=== PATIENT | female | born 1975 | race Caucasian/White ===

== ENCOUNTER 2019-05-25 05:22 | Observation (INO) | payer OTHER ==
[2019-05-18 11:25] LABS: HEMATOCRIT 46.1 % (36.0-47.0); HEMOGLOBIN 15.8 g/dL (12.0-15.5); MEAN CORPUSCULAR HEMOGLOBIN 33.1 pg (27.0-33.4); MEAN CORPUSCULAR HGB CONC 34.4 g/dL (32.0-36.0); MEAN CORPUSCULAR VOLUME 96 fl (80-97); PLATELET COUNT 166 10^3/uL (150-450); RED BLOOD COUNT 4.78 10^6/uL (3.72-5.28); WHITE BLOOD COUNT 4.9 10^3/uL (4.0-10.5)
[2019-05-18 11:35] LABS: APPEARANCE,URINE CLEAR; BILIRUBIN,URINE NEGATIVE (NEGATIVE); COLOR,URINE STRAW; GLUCOSE, URINE NEGATIVE (NEGATIVE); KETONES,URINE NEGATIVE (NEGATIVE); LEUKOCYTE ESTERASE,URINE NEGATIVE (NEGATIVE); NITRITE,URINE NEGATIVE (NEGATIVE); PROTEIN,URINE NEGATIVE (NEGATIVE); URINE SPECIFIC GRAVITY 1.006; UROBILINOGEN,URINE NEGATIVE mg/dL (<2.0)
[2019-05-18 11:55] LABS: ANION GAP 11 (5-19); BLOOD UREA NITROGEN 12 mg/dL (7-20); CALCIUM 9.1 mg/dL (8.4-10.2); CARBON DIOXIDE 25 mmol/L (22-30); CHLORIDE 103 mmol/L (98-107); GLUCOSE 85 mg/dL (75-110); POTASSIUM 4.3 mmol/L (3.6-5.0)
--- NOTE | 2019-05-18 13:21 | RADIOLOGY REPORT (SQ) ---
EXAM DESCRIPTION: CHEST PA/LATERAL COMPLETED DATE/TIME: 05/18/2019 11:24 am REASON FOR STUDY: PRE-OP COMPARISON: None. EXAM PARAMETERS: NUMBER OF VIEWS: two views TECHNIQUE: Digital Frontal and Lateral radiographic views of the chest acquired. RADIATION DOSE: NA LIMITATIONS: none FINDINGS: LUNGS AND PLEURA: No opacities, masses or pneumothorax. No pleural effusion. MEDIASTINUM AND HILAR STRUCTURES: No masses or contour abnormalities. HEART AND VASCULAR STRUCTURES: Heart normal size. No evidence for failure. BONES: No acute findings. HARDWARE: None in the chest. OTHER: No other significant finding. IMPRESSION: NO SIGNIFICANT RADIOGRAPHIC FINDING IN THE CHEST. TECHNICAL DOCUMENTATION: JOB ID: [id number] [employer]- All Rights Reserved Reading location - IP/workstation name: [email or web address]
--- NOTE | 2019-05-18 15:51 | EKG REPORT ---
SEVERITY:- NORMAL ECG - SINUS RHYTHM ST ELEV, PROBABLE NORMAL EARLY REPOL PATTERN : Confirmed by: Cyndi Robins MD 18-May-2019 15:50:57
[~2019-05-25 05:22] MED LIST: CEFAZOLIN 1 GM/D5W RTU 1 GM/50 ML RTUPB IV ONE; CEFAZOLIN 1 GM/D5W RTU 1 GM/50 ML RTUPB IV PRN; LACTATED RINGERS 1000 ML IV PRN; LIDOCAINE 0.5% INJ-PF (5 MG/ML) 50 ML SDV SUBCUT PRN
[2019-05-25] MEDS ORDERED: MIDAZOLAM 2 MG/2 ML INJ ONE (06:30)
[2019-05-25] MEDS ORDERED: FENTANYL CITRATE INJ/PF 250 MCG/5 ML AMPULE ONE (06:30)
[2019-05-25] MEDS ORDERED: PROPOFOL INJ 200 MG/20 ML VIAL IV ONE (06:31)
[2019-05-25] MEDS ORDERED: LIDOCAINE 1%/EPINEPHRINE INJ 20 ML VIAL ONE (07:09)
[2019-05-25] MEDS ORDERED: LIDOCAINE 1%/EPINEPHRINE INJ 20 ML VIAL INFIL ONE ×2 (07:38)
[2019-05-25] MEDS ORDERED: KETOROLAC TROMETHAMINE 60 MG/2 ML SDV ONE (08:42)
[2019-05-25] MEDS ORDERED: FENTANYL CITRATE INJ/PF 100 MCG/2 ML AMPUL IV PRN ×3 (08:46)
[2019-05-25] MEDS ORDERED: DIPHENHYDRAMINE HCL 50 MG/ML VIAL IV PRN (08:46)
[2019-05-25] MEDS ORDERED: PROMETHAZINE HCL INJ 25 MG/1 ML VIAL IV PRN ×2 (08:46)
[2019-05-25] MEDS ORDERED: OXYCODONE-ACETAMINOPHEN 5-325 MG TABLET PO PRN ×3 (08:46→09:12)
[2019-05-25] MEDS ORDERED: MEPERIDINE HCL/PF INJ 25 MG/1 ML DISP.SYRIN IV PRN (08:46)
[2019-05-25] MEDS ORDERED: MORPHINE SULFATE 10 MG/ML INJ INJ PRN ×2 (09:13→09:14)
[2019-05-25] MEDS ORDERED: MORPHINE SULFATE 10 MG/ML INJ IM PRN (09:15)
[2019-05-25] MEDS ORDERED: PROMETHAZINE HCL INJ 25 MG/1 ML VIAL IM PRN (09:15)
--- NOTE | 2019-05-25 12:20 | OPERATIVE REPORT E ---
Operative Report NAME: CRISTHIAN MACIAS : 1975 AGE: 43Y DATE OF SURGERY: 05/25/2019 ROOM: 209 PREOPERATIVE DIAGNOSIS: Menorrhagia. POSTOPERATIVE DIAGNOSIS: Menorrhagia. OPERATION: Total vaginal hysterectomy with Walsh culdoplasty. SURGEON: MARYLOU AVALOS M.D. ANESTHESIA: General endotracheal. COMPLICATIONS: None. ESTIMATED BLOOD LOSS: Approximately 25 to 50 mL. INDICATIONS FOR PROCEDURE: The patient had unreasonable uterine bleeding despite multiple outpatient management. She desired attempt at definitive therapy. The usual risks of bleeding, infection, anesthesia, and damage to organs or tissues was discussed with the patient who understood, and she desires attempt at definitive therapy. PROCEDURE: The patient was taken to the operating room. The patient was placed in modified lithotomy position. Adequate anesthesia was ascertained. She was prepped and draped in the usual manner for a vaginal hysterectomy. EUA was performed after a time out was performed and antibiotics had been given. Bladder was drained under sterile technique. The posterior vagina was retracted with a weighted speculum and a Gerardo speculum was used anteriorly. The posterior colpotomy incision was made, local infiltration of the area afterwards with 1% with epinephrine lidocaine was instilled with good hemostasis noted at this point. The uterosacral ligaments were crossclamped, cut, suture ligated, and held. The cervix was circumscribed. The bladder was advanced sequentially throughout this aspect of the procedure with LigaSure device used for hemostasis bilaterally. The anterior cul-de-sac was entered without difficulty. A Ben retractor was placed within the peritoneal cavity and the pedicles were identified and crossclamped and held. The cervix and uterus were handed off the operative field. The pedicles were noted to be dry. The ovaries were visually normal. The Walsh culdoplasty suture was placed and held, and the vagina was closed in an anterior to posterior fashion with #1 chromic catgut used throughout the case. Good hemostasis was noted. The vagina was irrigated. The bladder was drained of a small amount of urine at the completion of the case. All sponge and needle counts were correct. DICTATING PHYSICIAN: MARYLOU AVALOS M.D. [id number] Y#: [id number] ID: [id number] JOB#: [id number] ACCT: [id number] cc:MARYLOU AVALOS M.D. >
[2019-05-25] MEDS: CEFAZOLIN 1 GM/D5W RTU 1 GM/50 ML RTUPB IV SCH ×2 (12:31→17:28)
[2019-05-25] MEDS ORDERED: ROCURONIUM BROMIDE INJ 50 MG/5 ML VIAL IV ONE (16:05)
[2019-05-25] MEDS ORDERED: ONDANSETRON HCL INJ/PF 4 MG/2 ML SDV ONE (16:05)
[2019-05-25] MEDS ORDERED: DEXAMETHASONE SOD PHOSPHATE INJ 4 MG/1 ML VIAL ONE (16:05)
[2019-05-25] MEDS ORDERED: NEOSTIGMINE METHYLSULFATE 10 MG/10 ML VIAL ONE (16:05)
[2019-05-25] MEDS ORDERED: GLYCOPYRROLATE 1 MG/5 ML VIAL ONE (16:05)
[2019-05-25] MEDS ORDERED: LIDOCAINE 2% INJ-PF (20 MG/ML) 2 ML AMPUL ONE (16:05)
[2019-05-25] MEDS: IBUPROFEN 800 MG TABLET PO SCH ×2 (19:46→21:46)
[2019-05-26 06:31] LABS: HEMATOCRIT 38.8 % (36.0-47.0); HEMOGLOBIN 13.2 g/dL (12.0-15.5); MEAN CORPUSCULAR HEMOGLOBIN 32.5 pg (27.0-33.4); MEAN CORPUSCULAR VOLUME 96 fl (80-97); PLATELET COUNT 125 10^3/uL (150-450); RED BLOOD COUNT 4.05 10^6/uL (3.72-5.28); RED CELL DISTRIBUTION WIDTH 12.3 % (11.5-14.0); WHITE BLOOD COUNT 13.1 10^3/uL (4.0-10.5)
[2019-05-26] MEDS: IBUPROFEN 800 MG TABLET PO SCH (07:08)
[2019-05-26 08:16] VITALS: BP 110/74
== END 2019-05-26 08:35 | disposition home or self-care (01) ==
LOC: OROUT 05:22 → 2N 05:23 → OROUT 05-26 08:35
PROVIDERS: ADMIT Specialist; ATTEND Specialist
PROC: 0UT97ZZ Resection of Uterus, Via Natural or Artificial Opening (ICD-10-PCS; principal; 2019-05-25 07:15)
DX: N92.1 Excessive and frequent menstruation with irregular cycle (principal); N93.9 Abnormal uterine and vaginal bleeding, unspecified; Z98.890 Other specified postprocedural states
CPT/HCPCS: 93005; 86900; 86901; 36415 ×2; 86850; 85027 ×2; 81025; 80048; 81001; 88307 ×2; 71046; 94799; 93010; 00944; 58260; G0378 ×2; J2250; J0690; J3490 ×4; J1100; J1885; J3010; J2270; J2710; J2405; J2704; 944